=== PATIENT | male | born 1995 | race Caucasian/White ===

== ENCOUNTER → 2021-02-21 07:55 | Outpatient (CLI) | payer OTHER, SELFPAY ==
--- NOTE | 2021-02-21 | DI.MRI.S_ITS ---
PROCEDURE: MR THORACIC SPINE WO CON INDICATIONS: Pain in thoracic spine TECHNIQUE: Noncontrast sagittal T1 spine echo and T2 fast spin echo, sagittal STIR, axial T1 and T2 fast spin echo through the thoracic spine. COMPARISON: None. FINDINGS: Image quality: Excellent. Alignment and Curvature: There is normal bony alignment. Bone Marrow: Marrow is of normal overall signal. No acute vertebral body compression fractures. Spinal Cord: Visualized spinal cord is normal in size and signal. Paraspinous Soft Tissues: No paravertebral masses. Miscellaneous: On axial images, central canal and foramina appear widely patent at all scanned levels. IMPRESSION: Normal for age, source of thoracic spine pain is not seen. There is no evidence of trauma or disc bulge or herniation. No sign of discitis or osteomyelitis is found. Paravertebral soft tissues appear normal for age. Dictated by: Benjamin Hoffman M.D. on 02/21/2021 at 10:22 Approved by: Benjamin Hoffman M.D. on 02/21/2021 at 10:23
== END ==
PROVIDERS: PCP Family Medicine; Referring Provider Family Medicine; Visit Provider Family Medicine
DX: M54.6 Pain in thoracic spine (principal)
CPT/HCPCS: 72146